=== PATIENT | male | born 1965 | race Caucasian/White ===

== ENCOUNTER 2018-01-02 22:39 | Inpatient (IN) | payer MEDICAID ==
[~2018-01-02] VITALS: Ht 190.5 cm; Wt 117.0 kg
[2018-01-02] MEDS ORDERED: NITROGLYCERIN OINT 1GM/INCH UDPKT TD ONE (23:45)
[2018-01-03 00:33] LABS: BASOPHILS % 0.3 % (0.0-2.0); EOSINOPHILS % 2.4 % (0.0-5.0); HEMATOCRIT. 40.9 % (42.0-52.0); HEMOGLOBIN. 14.1 g/dL (14.0-18.0); LYMPHOCYTES % 17.1 % (20.0-50.0); MEAN CORPUSCULAR HEMOGLOBIN 29.6 pg (28.0-32.0); MEAN CORPUSCULAR VOLUME 85.7 fL (80.0-94.0); MEAN PLATELET VOLUME 7.5 fl (7.4-10.4); MONOCYTES % 9.6 % (2.0-8.0); NEUTROPHILS % 70.6 % (40.0-76.0); PLATELET 167 x1000/uL (130-400); RED BLOOD CELL COUNT 4.77 mill/uL (4.7-6.1); RED CELL DISTRIBUTION WIDTH 14.8 % (11.6-14.6)
[2018-01-03 00:36] LABS: INR 1.1; PROTHROMBIN TIME 11.3 sec (9.1-11.1)
[2018-01-03 00:39] LABS: CHLORIDE 104 mEq/L (98-107)
[2018-01-03] MEDS ORDERED: MORPHINE SULFATE 2 MG/ML CPJ (NOT FOR IM USE) IV ONE (01:45)
[2018-01-03] MEDS ORDERED: PHEN100T PO (06:19)
[2018-01-03] MEDS ORDERED: LEVE1000 PO (06:19)
[2018-01-03] MEDS ORDERED: ACETAMINOPHEN 325MG TABLET PO PRN (08:00)
[2018-01-03] MEDS ORDERED: ACETAMINOPHEN 650MG SUPP PR PRN (08:00)
[2018-01-03] MEDS ORDERED: ACETAMINOPHEN 650MG/20.3ML UDC GT PRN (08:00)
[2018-01-03] MEDS ORDERED: HYDROCODONE/ACETAMINOPHEN 5/325MG TABLET PO PRN (08:00)
[2018-01-03] MEDS ORDERED: HYDROCODONE/ACETAMINOPHEN 10/325MG TABLET PO PRN (08:00)
[2018-01-03] MEDS ORDERED: MAGNESIUM/ALUMINUM HYDROXIDE/SIMETHICONE 30ML UDC PO PRN (08:00)
[2018-01-03 08:30] VITALS: BP 115/74
[2018-01-03] MEDS ORDERED: EFEX1 PO (09:54)
[2018-01-03 12:00] VITALS: BP 142/86
[2018-01-03] MEDS: ASPIRIN 81MG TABLET PO SCH (13:13)
[2018-01-03] MEDS ORDERED: LOPERAMIDE HCL 2MG CAPSULE PO PRN (14:30)
[2018-01-03] MEDS: PHENOBARBITAL 100MG TABLET PO SCH ×2 (14:30→17:56)
[2018-01-03 16:00] VITALS: BP 124/77
[2018-01-03 16:50] LABS: CREATINE KINASE 33 IU/L (39-308)
[2018-01-03 16:51] LABS: CREATINE KINASE MB FRACTION < 1.0 ng/mL (0.5-3.6)
[2018-01-03 20:00] VITALS: BP 123/89
[2018-01-03] MEDS: LEVETIRACETAM 500MG/5ML CUP PO SCH (20:54)
[2018-01-03] MEDS: VENLAFAXINE HCL 75MG TABLET PO SCH (20:54)
[2018-01-03] MEDS: CEFAZOLIN 1000MG PREMIX 50 ML IV SCH (21:00)
[2018-01-03] MEDS ORDERED: CEFAZOLIN SODIUM 1000MG/VIAL IV SCH (22:00)
[2018-01-04] VITALS: BP 135/77
[2018-01-04 01:02] LABS: CREATINE KINASE 25 IU/L (39-308)
[2018-01-04 01:03] LABS: CREATINE KINASE MB FRACTION < 1.0 ng/mL (0.5-3.6)
[2018-01-04 04:00] VITALS: BP 128/82
[2018-01-04] MEDS: CEFAZOLIN 1000MG PREMIX 50 ML IV SCH ×3 (05:41→21:43)
[2018-01-04 08:00] VITALS: BP 121/70
[2018-01-04] MEDS: VENLAFAXINE HCL 75MG TABLET PO SCH ×2 (09:14→20:44)
[2018-01-04] MEDS: LEVETIRACETAM 500MG/5ML CUP PO SCH ×2 (09:14→20:45)
[2018-01-04] MEDS: ASPIRIN 81MG TABLET PO SCH (09:14)
[2018-01-04] MEDS: PHENOBARBITAL 100MG TABLET PO SCH ×3 (09:15→16:57)
[2018-01-04 12:00] VITALS: BP 133/88
[2018-01-04 12:06] LABS: BASOPHILS % 0.4 % (0.0-2.0); EOSINOPHILS % 1.6 % (0.0-5.0); HEMATOCRIT. 42.8 % (42.0-52.0); HEMOGLOBIN. 14.8 g/dL (14.0-18.0); LYMPHOCYTES % 12.6 % (20.0-50.0); MEAN CORPUSCULAR VOLUME 86.7 fL (80.0-94.0); MEAN PLATELET VOLUME 7.5 fl (7.4-10.4); MONOCYTES % 8.6 % (2.0-8.0); NEUTROPHILS % 76.8 % (40.0-76.0); PLATELET 178 x1000/uL (130-400); RED BLOOD CELL COUNT 4.94 mill/uL (4.7-6.1)
[2018-01-04 12:20] LABS: CHLORIDE 104 mEq/L (98-107)
[2018-01-04 12:29] LABS: LDL CHOLESTEROL 71 mg/dL (5-100)
[2018-01-04 12:35] LABS: PHOSPHORUS 2.7 mg/dL (2.5-4.9)
[2018-01-04 12:36] LABS: HDL CHOLESTEROL 36 mg/dL (40-59)
[2018-01-04 12:41] LABS: T4 FREE 0.77 ng/dL (0.76-1.46)
[2018-01-04 16:00] VITALS: BP 148/98
[2018-01-04] MEDS: ONDANSETRON HCL 4MG/2ML INJ IV PRN (17:58)
[2018-01-04 20:00] VITALS: BP 132/57
[2018-01-05] VITALS: BP 133/87
[2018-01-05] MEDS: ONDANSETRON HCL 4MG/2ML INJ IV PRN ×3 (02:55→19:53)
[2018-01-05 04:00] VITALS: BP 136/92
[2018-01-05] MEDS: CEFAZOLIN 1000MG PREMIX 50 ML IV SCH (05:24)
[2018-01-05 07:22] LABS: BASOPHILS % 0.4 % (0.0-2.0); EOSINOPHILS % 3.6 % (0.0-5.0); HEMATOCRIT. 43.1 % (42.0-52.0); HEMOGLOBIN. 14.7 g/dL (14.0-18.0); LYMPHOCYTES % 13.9 % (20.0-50.0); MEAN CORPUSCULAR HEMOGLOBIN 29.5 pg (28.0-32.0); MEAN CORPUSCULAR VOLUME 86.5 fL (80.0-94.0); MEAN PLATELET VOLUME 7.7 fl (7.4-10.4); NEUTROPHILS % 73.1 % (40.0-76.0); PLATELET 186 x1000/uL (130-400); RED BLOOD CELL COUNT 4.98 mill/uL (4.7-6.1)
[2018-01-05 08:30] VITALS: BP 114/81
[2018-01-05] MEDS: LEVETIRACETAM 500MG/5ML CUP PO SCH ×2 (09:11→19:54)
[2018-01-05] MEDS: ASPIRIN 81MG TABLET PO SCH (09:11)
[2018-01-05] MEDS: PHENOBARBITAL 100MG TABLET PO SCH ×3 (09:11→17:05)
[2018-01-05] MEDS: VENLAFAXINE HCL 75MG TABLET PO SCH ×2 (09:11→19:55)
[2018-01-05 09:32] LABS: CHLORIDE 103 mEq/L (98-107)
[2018-01-05 09:39] LABS: PHOSPHORUS 3.9 mg/dL (2.5-4.9)
[2018-01-05] MEDS ORDERED: HYDROCODONE/APAP 7.5/325MG 1 TAB TABLET PO PRN (11:45)
[2018-01-05 12:00] VITALS: BP 112/85
[2018-01-05 16:00] VITALS: BP 126/72
[2018-01-05 20:00] VITALS: BP 136/92
[2018-01-06] MEDS: HYDROCODONE/ACETAMINOPHEN 10/325MG TABLET PO PRN ×2 (00:02→16:58)
[2018-01-06 04:00] VITALS: BP 137/61
[2018-01-06 07:18] LABS: BASOPHILS % 0.5 % (0.0-2.0); EOSINOPHILS % 5.8 % (0.0-5.0); HEMATOCRIT. 42.5 % (42.0-52.0); LYMPHOCYTES % 15.5 % (20.0-50.0); MEAN CORPUSCULAR HEMOGLOBIN 30.4 pg (28.0-32.0); MEAN CORPUSCULAR VOLUME 86.1 fL (80.0-94.0); MEAN PLATELET VOLUME 7.4 fl (7.4-10.4); MONOCYTES % 9.6 % (2.0-8.0); NEUTROPHILS % 68.6 % (40.0-76.0); PLATELET 187 x1000/uL (130-400); RED BLOOD CELL COUNT 4.93 mill/uL (4.7-6.1)
[2018-01-06 08:00] VITALS: BP 137/83
[2018-01-06 08:11] LABS: CHLORIDE 102 mEq/L (98-107)
[2018-01-06 08:14] LABS: PHOSPHORUS 3.5 mg/dL (2.5-4.9)
[2018-01-06] MEDS: LEVETIRACETAM 500MG/5ML CUP PO SCH ×2 (08:21→20:08)
[2018-01-06] MEDS: VENLAFAXINE HCL 75MG TABLET PO SCH ×2 (08:21→20:09)
[2018-01-06] MEDS: ASPIRIN 81MG TABLET PO SCH (08:21)
[2018-01-06] MEDS: PHENOBARBITAL 100MG TABLET PO SCH ×3 (08:21→16:57)
[2018-01-06 12:00] VITALS: BP 121/84
[2018-01-06] MEDS: ONDANSETRON HCL 4MG/2ML INJ IV PRN (13:40)
[2018-01-06 16:08] VITALS: BP 125/95
[2018-01-06 20:00] VITALS: BP 129/87
[2018-01-07] VITALS: BP 123/79
[2018-01-07] MEDS ORDERED: DIPHENHYDRAMINE 25MG CAPSULE PO PRN (00:30)
[2018-01-07] MEDS ORDERED: DIPHENHYDRAMINE 50MG/ML VIAL IV PRN (00:30)
[2018-01-07] MEDS: ONDANSETRON HCL 4MG/2ML INJ IV PRN ×2 (00:43→09:02)
[2018-01-07 04:00] VITALS: BP 124/87
[2018-01-07 08:00] VITALS: BP 129/78
[2018-01-07] MEDS: VENLAFAXINE HCL 75MG TABLET PO SCH (09:00)
[2018-01-07] MEDS: ASPIRIN 81MG TABLET PO SCH (09:00)
[2018-01-07] MEDS: LEVETIRACETAM 500MG/5ML CUP PO SCH (09:00)
[2018-01-07] MEDS: PHENOBARBITAL 100MG TABLET PO SCH ×2 (11:27→14:33)
[2018-01-07 12:00] VITALS: BP 136/70
[2018-01-07 12:33] VITALS: BP 136/70
== END 2018-01-07 16:07 | disposition home or self-care (01) | DRG 383 ==
LOC: ER 23:16 → 5WST 01-03 01:26 → EDBEDREQ 01-03 01:33 → ENRESERV 01-03 07:34 → 5WST 01-03 09:29
PROVIDERS: ADMIT Internal Medicine; ATTEND Internal Medicine
DX: L03.115 Cellulitis of right lower limb (principal); I48.91 Unspecified atrial fibrillation; G40.909 Epilepsy, unspecified, not intractable, without status epilepticus; E66.9 Obesity, unspecified; F12.10 Cannabis abuse, uncomplicated; R07.9 Chest pain, unspecified; I10 Essential (primary) hypertension; I87.2 Venous insufficiency (chronic) (peripheral); F99 Mental disorder, not otherwise specified; R19.7 Diarrhea, unspecified; R22.41 Localized swelling, mass and lump, right lower limb; Z80.8 Family history of malignant neoplasm of other organs or systems; Z68.32 Body mass index [BMI] 32.0-32.9, adult; Z88.8 Allergy status to other drugs, medicaments and biological substances; Z95.2 Presence of prosthetic heart valve; Z90.49 Acquired absence of other specified parts of digestive tract; Z79.899 Other long term (current) drug therapy
CPT/HCPCS: 36415; 71045; 80048; 80061; 82550; 82553; 83036; 83605; 83735; 83880; 84100; 84145; 84439; 84443; 84481; 84484; 85379; 87015; 87045; 87427; 87449; 87493; 93005; 93306; 93970; 96374; 97161; 99285; J0690; J2270; J2405; J7050; Q0163

== ENCOUNTER 2018-01-25 22:20 | Inpatient (IN) | payer MEDICAID ==
[~2018-01-25] VITALS: Ht 185.4 cm; Wt 118.8 kg
[~2018-01-25 22:20] MED LIST: EFEX1 PO; LEVE1000 PO; PHEN100T PO
[2018-01-25] MEDS ORDERED: NITROGLYCERIN 0.4MG TABLET SL SL PRN (23:00)
[2018-01-25] MEDS ORDERED: FUROSEMIDE 40MG/4ML VIAL IVP ONE (23:45)
[2018-01-26 00:04] LABS: *AMPHETAMINES SCREEN URINE NEGATIVE (NEGATIVE); *BARBITURATES SCREEN URINE PRESUMTIVE POSITIVE (NEGATIVE); *BENZODIAZEPINES SCREEN URINE NEGATIVE (NEGATIVE)
[2018-01-26 00:05] LABS: *COCAINE SCREEN URINE NEGATIVE (NEGATIVE); CANNABINOID URINE SCREEN NEGATIVE (NEGATIVE); METHADONE URINE SCREEN NEGATIVE (NEGATIVE); OPIATES URINE SCREEN NEGATIVE (NEGATIVE); PHENCYCLIDINE URINE SCREEN NEGATIVE (NEGATIVE)
[2018-01-26 01:17] LABS: BASOPHILS % 0.5 % (0.0-2.0); EOSINOPHILS % 3.6 % (0.0-5.0); HEMATOCRIT. 40.3 % (42.0-52.0); HEMOGLOBIN. 13.8 g/dL (14.0-18.0); LYMPHOCYTES % 13.5 % (20.0-50.0); MEAN CORPUSCULAR HEMOGLOBIN 29.9 pg (28.0-32.0); MEAN CORPUSCULAR VOLUME 87.5 fL (80.0-94.0); MEAN PLATELET VOLUME 7.5 fl (7.4-10.4); MONOCYTES % 7.6 % (2.0-8.0); NEUTROPHILS % 74.8 % (40.0-76.0); PLATELET 165 x1000/uL (130-400); RED CELL DISTRIBUTION WIDTH 14.7 % (11.6-14.6)
[2018-01-26 01:26] LABS: CHLORIDE 104 mEq/L (98-107)
[2018-01-26 01:28] LABS: D-DIMER 0.19 mg/L FEU (<0.50); INR 1.1; PARTIAL THROMBOPLASTIN TIME 39.4 sec (23.4-31.0); PROTHROMBIN TIME 11.1 sec (9.1-11.1)
[2018-01-26 01:32] LABS: PHENOBARBITAL 23.2 ug/mL (15.0-40.0)
[2018-01-26] MEDS ORDERED: LEVETIRACETAM 500MG TABLET PO ONE (02:00)
[2018-01-26] MEDS ORDERED: PHENOBARBITAL 100MG TABLET PO ONE (02:00)
[2018-01-26] MEDS ORDERED: PHENOBARBITAL 30 MG TABLET PO SCH (02:30)
[2018-01-26 05:05] VITALS: BP 133/79
[2018-01-26] MEDS ORDERED: CLONIDINE 0.1MG TABLET PO PRN ×2 (05:15→06:00)
[2018-01-26] MEDS ORDERED: IPRATROPIUM/ALBUTEROL 0.5-3(2.5)MG/3ML NEB INH PRN ×2 (05:15→06:00)
[2018-01-26] MEDS ORDERED: ONDANSETRON HCL 4MG/2ML INJ IV PRN (05:15)
[2018-01-26] MEDS ORDERED: MAGNESIUM/ALUMINUM HYDROXIDE/SIMETHICONE 30ML UDC PO PRN ×2 (05:15→06:00)
[2018-01-26] MEDS ORDERED: ACETAMINOPHEN 325MG TABLET PO PRN ×2 (05:15→05:45)
[2018-01-26] MEDS ORDERED: DOCUSATE SODIUM 100MG CAPSULE PO PRN ×2 (05:15→06:00)
[2018-01-26] MEDS: MORPHINE SULFATE 4 MG/ML CPJ (NOT FOR IM USE) IV PRN ×2 (05:43→09:27)
[2018-01-26 08:41] VITALS: BP 124/74
[2018-01-26] MEDS ORDERED: LEVETIRACETAM 500MG TABLET PO SCH (09:00)
[2018-01-26 11:24] LABS: INR 1.1; PARTIAL THROMBOPLASTIN TIME 40.3 sec (23.4-31.0); PROTHROMBIN TIME 10.9 sec (9.1-11.1)
[2018-01-26 12:37] VITALS: BP 123/83
[2018-01-26] MEDS: TRAMADOL 50MG TABLET PO PRN ×2 (13:33→20:45)
[2018-01-26] MEDS: PHENOBARBITAL 100MG TABLET PO SCH ×2 (13:33→17:13)
[2018-01-26] MEDS: LEVETIRACETAM 500MG TABLET PO SCH ×2 (13:33→20:45)
[2018-01-26] MEDS: VENLAFAXINE HCL 50MG TABLET PO SCH ×2 (13:33→17:13)
[2018-01-26] MEDS: ONDANSETRON HCL 4MG/2ML INJ IV PRN ×2 (14:05→23:11)
[2018-01-26] MEDS: DILTIAZEM HCL 30MG TABLET PO SCH ×2 (14:05→20:45)
[2018-01-26 16:18] VITALS: BP 109/73
[2018-01-26] MEDS ORDERED: ENOXAPARIN 120MG/0.8ML SYR SUBCUT SCH (16:30)
[2018-01-26] MEDS: ZONISAMIDE 100MG CAPSULE PO SCH (17:13)
[2018-01-26] MEDS ORDERED: INFLUENZA VIRUS VACCINE(AFLURIA) 0.5ML SYR IM ONE (18:30)
[2018-01-26 20:00] VITALS: BP 126/72
[2018-01-26] MEDS: DIPHENHYDRAMINE 25MG CAPSULE PO PRN (23:11)
[2018-01-27] VITALS: BP 125/70
[2018-01-27 04:00] VITALS: BP 122/80
[2018-01-27] MEDS: ONDANSETRON HCL 4MG/2ML INJ IV PRN (05:09)
[2018-01-27] MEDS: LEVETIRACETAM 500MG TABLET PO SCH ×2 (05:09→14:50)
[2018-01-27] MEDS: DILTIAZEM HCL 30MG TABLET PO SCH ×3 (05:09→16:40)
[2018-01-27] MEDS: DIPHENHYDRAMINE 25MG CAPSULE PO PRN ×2 (08:30→16:40)
[2018-01-27] MEDS: VENLAFAXINE HCL 50MG TABLET PO SCH ×2 (08:30→16:40)
[2018-01-27] MEDS: TRAMADOL 50MG TABLET PO PRN (08:30)
[2018-01-27] MEDS: PHENOBARBITAL 100MG TABLET PO SCH ×3 (08:30→16:39)
[2018-01-27] MEDS: ZONISAMIDE 100MG CAPSULE PO SCH (08:30)
[2018-01-27 08:33] VITALS: BP 119/85
[2018-01-27 09:54] LABS: BASOPHILS % 0.3 % (0.0-2.0); EOSINOPHILS % 4.8 % (0.0-5.0); HEMATOCRIT. 45.7 % (42.0-52.0); HEMOGLOBIN. 15.7 g/dL (14.0-18.0); LYMPHOCYTES % 11.6 % (20.0-50.0); MEAN CORPUSCULAR HEMOGLOBIN 30.1 pg (28.0-32.0); MEAN CORPUSCULAR VOLUME 87.3 fL (80.0-94.0); MEAN PLATELET VOLUME 7.6 fl (7.4-10.4); MONOCYTES % 5.8 % (2.0-8.0); NEUTROPHILS % 77.5 % (40.0-76.0); PLATELET 164 x1000/uL (130-400); RED BLOOD CELL COUNT 5.23 mill/uL (4.7-6.1); RED CELL DISTRIBUTION WIDTH 14.7 % (11.6-14.6)
[2018-01-27 10:05] LABS: CHLORIDE 99 mEq/L (98-107)
[2018-01-27 10:12] LABS: PHOSPHORUS 3.2 mg/dL (2.5-4.9)
[2018-01-27 12:00] VITALS: BP 143/81
[2018-01-27 16:00] VITALS: BP 147/68
[2018-01-27 16:10] VITALS: BP 147/68
== END 2018-01-27 19:09 | disposition home or self-care (01) | DRG 203 ==
LOC: ER 22:20 → 8WST 01-26 01:40 → EDBEDREQDT 01-26 01:46 → EDBEDREQTM 01-26 01:46 → EDBEDREQ 01-26 01:46 → ENRESERV 01-26 02:34
PROVIDERS: ADMIT Family Medicine Adult Medicine; ATTEND Family Medicine Adult Medicine
DX: M94.0 Chondrocostal junction syndrome [Tietze] (principal); I50.23 Acute on chronic systolic (congestive) heart failure; I42.9 Cardiomyopathy, unspecified; F20.9 Schizophrenia, unspecified; G24.01 Drug induced subacute dyskinesia; I48.2 Chronic atrial fibrillation; E78.00 Pure hypercholesterolemia, unspecified; I11.0 Hypertensive heart disease with heart failure; F32.9 Major depressive disorder, single episode, unspecified; E78.5 Hyperlipidemia, unspecified; G40.909 Epilepsy, unspecified, not intractable, without status epilepticus; Z86.73 Personal history of transient ischemic attack (TIA), and cerebral infarction without residual deficits; Z95.2 Presence of prosthetic heart valve; Z82.49 Family history of ischemic heart disease and other diseases of the circulatory system; Z91.5 Personal history of self-harm; Z83.49 Family history of other endocrine, nutritional and metabolic diseases; Z91.013 Allergy to seafood; Z91.018 Allergy to other foods; Z88.8 Allergy status to other drugs, medicaments and biological substances
CPT/HCPCS: 36415; 71045; 80048; 80184; 80305; 82542; 83735; 83880; 84100; 84484; 85379; 90686; 93005; 93970; 96374; 99285; J1940; J2270; J2405; Q0163